=== PATIENT | female | born 1995 | race Caucasian/White ===

== ENCOUNTER 2018-04-16 18:36 | Emergency (ER) | payer OTHER ==
--- NOTE | 2018-04-16 18:56 | ED Physician Documentation ---
PD HPI ABD PAIN - Stated complaint Stated Complaint: CRAMPING/6WK OB - Chief complaint Chief Complaint: Abd Pain - History obtained from History obtained from: Patient - History of Present Illness Timing - onset: Other ( with history of miscarriage, also history of von Willebrand's disease at 6 weeks 4 days gestation by LMP who has been dizzy throughout her and having some headaches and now today had a syncopal episode where she hit her right flank and has persistent pain there. 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 - Present Medications Home Medications: Ambulatory Orders Medication Instructions Recorded Confirmed No Known Home Medications [No 04/16/18 04/16/18 Known Home Medications] - Allergies Allergies/Adverse Reactions: Allergies Allergy/AdvReac Type Severity Reaction Status Date / Time amoxicillin Allergy Rash Verified 04/16/18 18:41 morphine Allergy Hives Verified 04/16/18 18:41 Penicillins Allergy Rash Verified 04/16/18 18:41 Sulfa (Sulfonamide Allergy Hives Verified 04/16/18 18:41 Antibiotics) - Social History Does the pt smoke?: No Smoking Status: Never smoker Does the pt drink ETOH?: No Does the pt have substance abuse?: No - Immunizations Immunizations are current?: Yes - POLST Patient has POLST: No PD ED PE NORMAL - Vitals Vital signs reviewed: Yes - General General: Alert and oriented X 3, No acute distress - HEENT HEENT: PERRL, EOMI - Neck Neck: Supple, no meningeal sign, No bony TTP - Cardiac Cardiac: RRR, No murmur - Respiratory Respiratory: No respiratory distress - Abdomen Abdomen: Normal bowel sounds, Soft, Non tender - Female Female : Other (Bedside ultrasound demonstrates what looks like a gravid uterus but I am unable to pick out an IUP or heart tones.) - Back Back: No CVA TTP, No spinal TTP - Neuro Neuro: Alert and oriented X 3, Normal speech Results - Vitals Vitals: Vital Signs - 24 hr 04/16/18 04/16/18 04/16/18 18:38 19:03 21:27 Temperature 36.8 C 36.7 C Heart Rate 86 80 86 Respiratory 15 15 16 Rate Blood Pressure 136/77 H 134/81 H 135/84 H O2 Saturation 96 100 100 04/16/18 22:08 Temperature 36.4 C L Heart Rate 70 Respiratory 16 Rate Blood Pressure 124/72 O2 Saturation 100 Oxygen O2 Source Room air - EKG (time done) 2206 Rate: Rate (enter#) (77) Rhythm: NSR [place]: Normal Intervals: Normal [place] QRS: Normal Ischemia: Normal ST segments Computer interpretation: Agree with computer - Labs Labs: Laboratory Tests 04/16/18 04/16/18 04/16/18 18:55 19:07 19:07 WBC 8.3 RBC 4.14 L Hgb 12.9 Hct 36.3 L MCV 87.7 MCH 31.2 H MCHC 35.6 RDW 13.0 Plt Count 207 MPV 7.2 L Neut # (Auto) 5.2 Lymph # (Auto) 2.6 [place] # (Auto) 0.4 Eos # (Auto) 0.0 Baso # (Auto) 0.0 Absolute Nucleated RBC 0.01 Nucleated RBC % 0.1 Sodium Potassium Chloride Carbon Dioxide Anion Gap BUN Creatinine Estimated GFR (MDRD) Glucose Calcium HCG, Quant Urine Color YELLOW Urine Clarity CLEAR Urine pH 5.5 Ur Specific [place] <=1.005 Urine Protein NEGATIVE Urine Glucose (UA) NEGATIVE Urine Ketones NEGATIVE Urine Occult Blood TRACE-INTA Urine Nitrite NEGATIVE Urine Bilirubin NEGATIVE Urine Urobilinogen 0.2 (NORMAL) Ur Leukocyte Esterase NEGATIVE Ur Microscopic Review NOT INDICATED Urine Culture Comments NOT INDICATED Blood Type O NEGATIVE 04/16/18 04/16/18 19:07 19:07 WBC RBC Hgb Hct MCV MCH MCHC RDW Plt Count MPV Neut # (Auto) Lymph # (Auto) [place] # (Auto) Eos # (Auto) Baso # (Auto) Absolute Nucleated RBC Nucleated RBC % Sodium 136 Potassium 3.5 Chloride 104 Carbon Dioxide 24 Anion Gap 8.0 BUN 7 Creatinine 0.8 Estimated GFR (MDRD) 88 L Glucose 86 Calcium 9.0 HCG, Quant 04562.00 Urine Color Urine Clarity Urine pH Ur Specific [place] Urine Protein Urine Glucose (UA) Urine Ketones Urine Occult Blood Urine Nitrite Urine Bilirubin Urine Urobilinogen Ur Leukocyte Esterase Ur Microscopic Review Urine Culture Comments Blood Type - Rads (name of study) Pelvic and retroperitoneal sono Radiology: EMP read contemporaneously (Single live intrauterine , 6 weeks 1 day gestation with heart rate of 120. No retroperitoneal hematoma.) PD MEDICAL DECISION MAKING - ED course ED course: 22-year-old woman who has been having dizzy episodes and now a syncopal episode in this . She has a history of von Willebrand's disease and has lower abdominal cramping but no bleeding. Ultrasounds and lab work are reassuring. - Sepsis Event Vital Signs: Vital Signs - 24 hr 04/16/18 04/16/18 04/16/18 18:38 19:03 21:27 Temperature 36.8 C 36.7 C Heart Rate 86 80 86 Respiratory 15 15 16 Rate Blood Pressure 136/77 H 134/81 H 135/84 H O2 Saturation 96 100 100 04/16/18 22:08 Temperature 36.4 C L Heart Rate 70 Respiratory 16 Rate Blood Pressure 124/72 O2 Saturation 100 Oxygen O2 Source Room air Departure - Departure Disposition: Home, Self Care Clinical Impression: Pelvic cramping Syncope Qualifiers: Syncope type: unspecified Qualified Code(s): R55 - Syncope and collapse Qualifiers: Weeks of gestation: less than 8 weeks Qualified Code(s): Z3A.01 - Less than 8 weeks gestation of Condition: Good Record reviewed to determine appropriate education?: Yes Instructions: ED Fainting Unkn Cause, ED Preg Established Normal Sxs Comments: Call your doctor to arrange a follow-up appointment, make the next available appointment. In the interim, return anytime if worse or if new symptoms develop. Your blood pressure was elevated today on check into the emergency department. This does not mean that you have hypertension, it is a common phenomenon to come to the emergency department and have elevated blood pressure. I recommend that you see your primary care physician within the week to have it rechecked when you are feeling better.
[2018-04-16 19:02] LABS: BILIRUBIN,URINE NEGATIVE (NEGATIVE); GLUCOSE, URINE (UA) NEGATIVE (NEGATIVE); KETONES,URINE (UA) NEGATIVE (NEGATIVE); LEUKOCYTE ESTERASE, URINE NEGATIVE (NEGATIVE); NITRITE,URINE NEGATIVE (NEGATIVE); OCCULT BLOOD,URINE TRACE-INTA (NEGATIVE); PH,URINE 5.5 PH (5.0-7.5); PROTEIN,URINE NEGATIVE (NEGATIVE); UROBILINOGEN,URINE 0.2 (NORMAL) E.U./dL (NORMAL)
[2018-04-16 19:03] LABS: CLARITY,URINE CLEAR (CLEAR)
[2018-04-16 19:13] LABS: BASOPHILS % (AUTO) 0.4 %; EOSINOPHILS % (AUTO) 0.5 %; HGB - HEMOGLOBIN 12.9 g/dL (12.0-16.0); LYMPHOCYTES # (AUTO) 2.6 10^3/uL (1.5-3.5); LYMPHOCYTES % (AUTO) 31.1 %; MEAN CORPUSCULAR HEMOGLOBIN 31.2 pg (27.0-31.0); MEAN CORPUSCULAR HGB CONC 35.6 g/dL (32.0-36.0); MEAN CORPUSCULAR VOLUME 87.7 fL (81.0-99.0); MEAN PLATELET VOLUME 7.2 fL (7.9-10.8); MONOCYTES # (AUTO) 0.4 10^3/uL (0.0-1.0); MONOCYTES % (AUTO) 5.4 %; NEUTROPHILS # (AUTO) 5.2 10^3/uL (1.5-6.6); NEUTROPHILS % (AUTO) 62.6 %; PLT - PLATELET COUNT 207 10^3/uL (130-450); RED BLOOD COUNT 4.14 10^6/uL (4.20-5.40); WHITE BLOOD COUNT 8.3 x10^3/uL (4.8-10.8)
[2018-04-16 19:39] LABS: CREATININE 0.8 mg/dL (0.4-1.0)
--- NOTE | 2018-04-16 21:40 | Ultrasound Report ---
Reason: R flank pain, syncope, cramping, 6w4d preg Procedure Date: 04/16/2018 Accession Number: [id number] / [id number] Procedure: US - Retroperitoneal Limited CPT Code: FULL RESULT: EXAM: RETROPERITONEAL LIMITED ULTRASOUND EXAM DATE: 04/16/2018 08:54 PM. CLINICAL HISTORY: Right flank pain, syncope, cramping, 6w4d . COMPARISON: None. TECHNIQUE: Real-time scanning was performed with static images obtained. FINDINGS: Right Kidney: 10.8 x 5.4 x 4.5 cm. Normal echotexture with no stones, contour-deforming masses, or hydronephrosis. No perinephric fluid collection. No evidence for hematoma. IMPRESSION: The right kidney appears within normal limits. RADIA
--- NOTE | 2018-04-16 21:47 | Ultrasound Report ---
Reason: R flank pain, syncope, cramping, 6w4d preg Procedure Date: 04/16/2018 Accession Number: [id number] / [id number] Procedure: US - OB First Trimester CPT Code: FULL RESULT: EXAM: FIRST TRIMESTER OBSTETRIC ULTRASOUND (Less than 11 weeks) OB TRANSVAGINAL EXAM DATE: 04/16/2018 08:26 PM. CLINICAL HISTORY: Right flank pain, syncope, cramping, 6w4d . LMP: 03/01/2018, EGA 6 weeks 4 days, WANDER 12/06/2018. COMPARISONS: None. TECHNIQUE: Transabdominal and transvaginal ultrasound examination with static image documentation. ASSESSMENT: Gestational Sac: Single intrauterine. Shape of the gestational sac appears within normal limits. Mean gestational sac diameter: 23 mm = 6 weeks 6 days. Embryo: CRL (crown-rump length) 4.5 mm = 6 weeks 1 day, WANDER 12/09/2018. Cardiac activity: 124 beats per minute. Yolk sac: 3 mm. Amniotic fluid: Not accurately assessed at this gestational age. Early placenta: Not visible at this gestational age. Other: No perigestational fluid collection demonstrated. MATERNAL STRUCTURES: Uterus: Anteverted.. Unremarkable. Cervix: Closed. Right Ovary/Adnexa: Unremarkable. The ovary measures 5.1 x 2.7 x 2.2 cm, volume 16.2 cc, corpus luteum measures 1.9 cm. Simple dominant follicle measures 2.1 cm. Blood flow is seen in the right ovary. Left Ovary/Adnexa: Unremarkable. The left ovary is not seen, obscured by bowel gas. Free Fluid: None. IMPRESSION: 1. Single living intrauterine at EGA 6 weeks 1 day with WANDER 12/09/2018 based on crown-rump length, which is concordant with clinical dates based on the LMP. LMP: 03/01/2018, EGA 6 weeks 4 days, WANDER 12/06/2018. 2. No acute findings. See above. RADIA
--- NOTE | 2018-04-16 21:47 | Ultrasound Report ---
Reason: R flank pain, syncope, cramping, 6w4d preg Procedure Date: 04/16/2018 Accession Number: [id number] / [id number] Procedure: US - OB Transvaginal CPT Code: FULL RESULT: EXAM: FIRST TRIMESTER OBSTETRIC ULTRASOUND (Less than 11 weeks) OB TRANSVAGINAL EXAM DATE: 04/16/2018 08:26 PM. CLINICAL HISTORY: Right flank pain, syncope, cramping, 6w4d . LMP: 03/01/2018, EGA 6 weeks 4 days, WANDER 12/06/2018. COMPARISONS: None. TECHNIQUE: Transabdominal and transvaginal ultrasound examination with static image documentation. ASSESSMENT: Gestational Sac: Single intrauterine. Shape of the gestational sac appears within normal limits. Mean gestational sac diameter: 23 mm = 6 weeks 6 days. Embryo: CRL (crown-rump length) 4.5 mm = 6 weeks 1 day, WANDER 12/09/2018. Cardiac activity: 124 beats per minute. Yolk sac: 3 mm. Amniotic fluid: Not accurately assessed at this gestational age. Early placenta: Not visible at this gestational age. Other: No perigestational fluid collection demonstrated. MATERNAL STRUCTURES: Uterus: Anteverted.. Unremarkable. Cervix: Closed. Right Ovary/Adnexa: Unremarkable. The ovary measures 5.1 x 2.7 x 2.2 cm, volume 16.2 cc, corpus luteum measures 1.9 cm. Simple dominant follicle measures 2.1 cm. Blood flow is seen in the right ovary. Left Ovary/Adnexa: Unremarkable. The left ovary is not seen, obscured by bowel gas. Free Fluid: None. IMPRESSION: 1. Single living intrauterine at EGA 6 weeks 1 day with WANDER 12/09/2018 based on crown-rump length, which is concordant with clinical dates based on the LMP. LMP: 03/01/2018, EGA 6 weeks 4 days, WANDER 12/06/2018. 2. No acute findings. See above. RADIA
[2018-04-16 22:10] VITALS: BP 124/72
== END 2018-04-16 22:12 | disposition home or self-care (01) ==
LOC: ED 18:36
DX: O99.111 Other diseases of the blood and blood-forming organs and certain disorders involving the immune mechanism complicating pregnancy, first trimester (principal); R25.2 Cramp and spasm; R55 Syncope and collapse; D68.0 Von Willebrand disease; Z3A.01 Less than 8 weeks gestation of pregnancy; R03.0 Elevated blood-pressure reading, without diagnosis of hypertension
CPT/HCPCS: 36415; 76775; 76801; 76817; 80048; 81001; 81003; 84702; 85025; 86900; 86901; 87086; 93005; 99284

== ENCOUNTER 2018-05-04 08:27 | Outpatient (CLI) | payer OTHER ==
--- NOTE | 2018-05-04 14:01 | Ultrasound Report ---
Reason: ENCOUNTER FOR TEST,RESULT POSITIVE Procedure Date: 05/04/2018 Accession Number: [id number] / [id number] Procedure: US - OB First Trimester CPT Code: FULL RESULT: EXAM: FIRST TRIMESTER OBSTETRIC ULTRASOUND (Less than 11 weeks) EXAM DATE: 05/04/2018 09:21 AM. CLINICAL HISTORY: Encounter for test. Result positive. LMP: 03/01/2018. COMPARISONS: OB FIRST TRIMESTER 04/16/2018 8:26 PM. TECHNIQUE: Transabdominal ultrasound examination with static image documentation. CLINICAL DATES: EGA 8 weeks 5 days with WANDER 12/09/2018 based on prior ultrasound. ASSESSMENT: Gestational Sac: Single intrauterine. Mean gestational sac diameter: 44 mm = 9 weeks 6 days. Embryo: CRL (crown-rump length) 21.4 mm = 8 weeks 4 days. Cardiac activity: 164 beats per minute. Yolk sac: 3.8 mm. Amniotic fluid: Not accurately assessed at this gestational age. Early placenta: Not visible at this gestational age. Other: No perigestational fluid collection demonstrated. MATERNAL STRUCTURES: Uterus: Anteverted. Unremarkable. Cervix: Closed. Right Ovary/Adnexa: The ovary measures 3.9 x 3.2 x 3.1 cm, volume 20.2 cc. A 2.5 x 2.8 x 2.5 cm cyst is seen. Left ovary is not seen. Free Fluid: None. Unremarkable. Other: None. IMPRESSION: 1. Single viable intrauterine at EGA 8 weeks 4 days with WANDER 12/10/2018 based on crown-rump length, which is concordant with the initial ultrasound. 2. Assigned dating is WANDER 12/09/2018 based on the initial ultrasound. RADIA
== END 2018-05-04 08:28 | disposition home or self-care (01) ==
LOC: DI 08:27
PROVIDERS: ATTEND Obstetrics & Gynecology
DX: Z32.01 Encounter for pregnancy test, result positive (principal)
CPT/HCPCS: 76801

== ENCOUNTER 2018-05-16 11:22 | Outpatient (CLI) | payer OTHER ==
[2018-05-16 11:46] LABS: BASOPHILS % (AUTO) 0.3 %; EOSINOPHILS # (AUTO) 0.1 10^3/uL (0.0-0.7); LYMPHOCYTES % (AUTO) 31.5 %; MEAN CORPUSCULAR HEMOGLOBIN 30.6 pg (27.0-31.0); MEAN CORPUSCULAR VOLUME 87.6 fL (81.0-99.0); MEAN PLATELET VOLUME 7.2 fL (7.9-10.8); MONOCYTES # (AUTO) 0.3 10^3/uL (0.0-1.0); MONOCYTES % (AUTO) 5.1 %; NEUTROPHILS # (AUTO) 3.9 10^3/uL (1.5-6.6); NEUTROPHILS % (AUTO) 62.1 %; PLT - PLATELET COUNT 189 10^3/uL (130-450); RED BLOOD COUNT 4.25 10^6/uL (4.20-5.40); RED CELL DISTRIBUTION WIDTH 12.9 % (12.0-15.0); WHITE BLOOD COUNT 6.3 x10^3/uL (4.8-10.8)
[2018-05-16 12:53] LABS: BILIRUBIN,URINE NEGATIVE (NEGATIVE); GLUCOSE, URINE (UA) NEGATIVE (NEGATIVE); KETONES,URINE (UA) NEGATIVE (NEGATIVE); LEUKOCYTE ESTERASE, URINE NEGATIVE (NEGATIVE); NITRITE,URINE NEGATIVE (NEGATIVE); OCCULT BLOOD,URINE TRACE-LYSE (NEGATIVE); PROTEIN,URINE NEGATIVE (NEGATIVE); UROBILINOGEN,URINE 0.2 (NORMAL) E.U./dL (NORMAL)
[2018-05-16 13:14] LABS: BACTERIA,URINE None Seen /HPF (None Seen); CLARITY,URINE CLEAR (CLEAR); RBC,URINE 0-5 /HPF (0-5); SQUAMOUS EPITHELIAL CELL,UR RARE Squamous (<= Few)
[2018-05-16 13:15] LABS: CRYSTALS,URINE 3-5 Calcium Oxalate /LPF
[2018-05-17 13:27] LABS: HEPATITIS B SURFACE ANTIGEN NON-REACTIVE (NON-REACTIVE)
[2018-05-17 13:28] LABS: HEPATITIS C ANTIBODY NON-REACTIVE (NON-REACTIVE)
[2018-05-17 14:22] LABS: HIV AG/AB 4TH GEN NON-REACTIVE (NON-REACTIVE)
== END 2018-05-16 11:23 | disposition home or self-care (01) ==
LOC: LAB 11:22
PROVIDERS: ATTEND Obstetrics & Gynecology
DX: Z34.81 Encounter for supervision of other normal pregnancy, first trimester (principal)
CPT/HCPCS: 36415; 81001; 81599; 85025; 86592; 86762; 86803; 86850; 86900; 86901; 87340; 87389